=== PATIENT | female | born 1955 | race Caucasian/White ===

== ENCOUNTER 2018-10-13 07:08 | Day surgery (SDC) | payer OTHER ==
[2018-10-12 11:23] VITALS: BMI 43.6
[2018-10-13] MEDS ORDERED: LIDOCAINE HCL 1%, 10 MG/ML (20ML VIAL) ONE ×2 (08:11→10:10)
[2018-10-13] MEDS ORDERED: PROPOFOL 20 ML ONE (08:56)
[2018-10-13] MEDS ORDERED: MIDAZOLAM HCL 2 MG/2 ML SINGLE DOSE VIAL ONE ×2 (08:56)
[2018-10-13] MEDS ORDERED: SUCCINYLCHOLINE CHLORIDE 200 MG/10 ML VIAL ONE (08:56)
[2018-10-13] MEDS ORDERED: DEXAMETHASONE SOD PHOSPHATE 4 MG/1 ML VIAL ONE (09:33)
[2018-10-13] MEDS ORDERED: ONDANSETRON 4 MG/2 ML VIAL ONE (09:33)
[2018-10-13] MEDS ORDERED: ceFAZolin SODIUM 1 GM VIAL IVPB ONE (09:33)
[2018-10-13] MEDS ORDERED: ceFAZolin SODIUM 1 GM VIAL ONE (09:42)
--- NOTE | 2018-10-13 10:06 | CONS ---
DATE OF CONSULTATION: 10/13/2018 HISTORY OF PRESENT ILLNESS: Patient is a 62-year-old female with history of overactive bladder and urge incontinence. Patient has failed multiple medical treatments as well as Kegel exercises. She is scheduled to undergo a bladder neurostimulation battery insertion. She does have history of diabetes as well as thyroid disease and dyslipidemia. She has undergone a hysterectomy. She denies any allergies, ethanol, or tobacco. She is nulligravida. MEDICATIONS: She is on Januvia, Lipitor, thyroxin, and a PPI. PHYSICAL EXAMINATION: Vital signs: Were stable. Lungs: Clear. Abdomen: Soft. Pelvic: Revealed atrophic vaginal mucosa. Teodoro test is negative. She underwent a PTNS on August 02, which revealed good response to neurostimulation. PLAN: She will undergo permanent implantation this morning. Procedure has been explained fully to patient, and she agrees. MEMO TURNER M.D. [id number]
--- NOTE | 2018-10-13 10:33 | OP ---
Operative Note - Note: Operative Date: 10/13/18 Pre-Operative Diagnosis: overactive bladder and voiding dysfunction. failed medical therapy. Operation: neurointerstim implantation of lead and battery. Implants: interstim battery and lead Post-Operative Diagnosis: Same as Pre-op Surgeon: Patricia Calle Anesthesia: Local Specimens Removed: none Estimated Blood Loss (mls): 0 Drains & Tubes with Location: 0 Drains, Volume Out (mls): 0 Blood Volume Replaced (mls): 0 Fluid Volume Replaced (mls): 0 Operative Report Dictated: Yes
[2018-10-13] MEDS ORDERED: ACETAMINOPHEN 325 MG TABLET (FP) PO PRN (10:35)
[2018-10-13] MEDS ORDERED: LIDOCAINE 1% P/F 10 MG/ML VIAL INF ONE (10:37)
[2018-10-13] MEDS ORDERED: oxyCODONE HCL 5 MG TABLET PO PRN (10:41)
[2018-10-13] MEDS ORDERED: ONDANSETRON 4 MG/2 ML VIAL IVPUSH PRN (10:41)
[2018-10-13] MEDS ORDERED: ACETAMINOPHEN 325 MG TABLET (FP) ONE (10:42)
[2018-10-13] MEDS ORDERED: LACTATED RINGERS SOLUTION 1,000 ML IV SCH (10:45)
--- NOTE | 2018-10-13 11:50 | OP ---
DATE OF OPERATION: DATE OF DICTATION: 10/13/2018 PREOPERATIVE DIAGNOSES: Overactive bladder, voiding dysfunction. POSTOPERATIVE DIAGNOSES: Overactive bladder, voiding dysfunction. OPERATIVE PROCEDURE: Placement of a bladder neurostimulator. ANESTHESIA: Neuroelectric and local. Patient was placed in the prone position. After proper measurements sacral route 2 on the right side was cannulated. There appeared to be good stimulation with flickering of the toe and a perianal [place] maneuver. The lead was placed inside the sacral nerve route 3 and tunneled to the right supra jessica region overlying the lower back. An incision approximately 4 cm in length was made above the gluteal crease on the right side. This was carried down through skin and subcutaneous tissue. The InterStim battery was then connected to the lead which was tunneled from the midline to the area of the pocket. The lead was then connected to the battery. The battery was placed into the pocket over the jessica gluteus. The wound was irrigated with antibiotic solution and closed in 2 layers, the 1st layer with 3-0 Vicryl suture ligature. The skin was closed with micah. The patient tolerated the procedure well. Tushar [id number]
[2018-10-13] MEDS ORDERED: oxyCODONE HCL 5 MG TABLET ONE (12:09)
[2018-10-13 12:55] VITALS: TEMP 97.8
[2018-10-13 14:38] VITALS: BP 140/70; PULSE 70
== END 2018-10-13 14:52 | disposition home or self-care (01) ==
LOC: JASU-SURG 07:08
PROVIDERS: ATTEND Urology
PROC: 01HY0MZ Insertion of Neurostimulator Lead into Peripheral Nerve, Open Approach (ICD-10-PCS; 2018-10-13)
PROC: 4B01XVZ Measurement of Peripheral Nervous Stimulator, External Approach (ICD-10-PCS; 2018-10-13)
PROC: 0JH70BZ Insertion of Single Array Stimulator Generator into Back Subcutaneous Tissue and Fascia, Open Approach (ICD-10-PCS; principal; 2018-10-13 09:00)
DX: N32.81 Overactive bladder (principal); N31.8 Other neuromuscular dysfunction of bladder; N39.3 Stress incontinence (female) (male)
CPT/HCPCS: 64581; 64590; 95972; C1778; L8679; 76000-TC-FY; 82962; 94760

== ENCOUNTER 2019-10-23 06:02 | Day surgery (SDC) | payer OTHER ==
[2019-10-22 09:55] VITALS: BMI 40.4
[2019-10-23 06:23] VITALS: TEMP 97.5
[2019-10-23] MEDS ORDERED: LIDOCAINE HCL 1%, 10 MG/ML (20ML VIAL) ONE (07:09)
[2019-10-23] MEDS ORDERED: SUCCINYLCHOLINE CHLORIDE 200 MG/10 ML SYRINGE ONE (07:23)
[2019-10-23] MEDS ORDERED: MIDAZOLAM HCL 2 MG/2 ML SINGLE DOSE VIAL ONE (07:23)
[2019-10-23] MEDS ORDERED: PROPOFOL 20 ML ONE (07:23)
[2019-10-23] MEDS ORDERED: LIDOCAINE HCL/PF 2% SDV 5ML VIAL ONE (07:25)
[2019-10-23] MEDS ORDERED: DESFLURANE GAS 240 ML BOTTLE IH ONE (07:50)
[2019-10-23] MEDS ORDERED: ceFAZolin SODIUM 1 GM VIAL IVPB ONE (08:21)
[2019-10-23] MEDS ORDERED: ceFAZolin SODIUM 1 GM VIAL ONE ×2 (08:31→11:37)
[2019-10-23] MEDS ORDERED: BACITRACIN 50,000 UNITS VIAL NR ONE (08:36)
[2019-10-23] MEDS ORDERED: LIDOCAINE HCL 1%, 10 MG/ML (20ML VIAL) NR ONE ×2 (08:44)
[2019-10-23] MEDS ORDERED: oxyCODONE HCL 5 MG TABLET PO PRN (09:04)
[2019-10-23] MEDS ORDERED: ONDANSETRON 4 MG/2 ML VIAL IVPUSH PRN (09:04)
[2019-10-23] MEDS ORDERED: LACTATED RINGERS SOLUTION 1,000 ML IV SCH (09:15)
--- NOTE | 2019-10-23 09:30 | OP ---
Operative Note - Note: Operative Date: 10/23/19 Pre-Operative Diagnosis: over-active bladder Operation: interstim implantation with lead Post-Operative Diagnosis: Same as Pre-op Surgeon: Patricia Calle Anesthesia: Local, Fractional Estimated Blood Loss (mls): 20 Drains, Volume Out (mls): 0 Blood Volume Replaced (mls): 0 Fluid Volume Replaced (mls): 0 Operative Report Dictated: Yes
[2019-10-23] MEDS ORDERED: ACETAMINOPHEN 325 MG TABLET (FP) ONE (11:06)
[2019-10-23] MEDS ORDERED: ACETAMINOPHEN 325 MG TABLET (FP) PO ONE (11:20)
[2019-10-23 12:29] VITALS: BP 103/50; PULSE 75
--- NOTE | 2019-10-24 09:25 | HP ---
DATE OF ADMISSION: 10/23/2019 HISTORY OF PRESENT ILLNESS: Patient is a 63-year-old female with history of overactive bladder, which was refractory to exercise and anticholinergics. She is diabetic, dyslipidemic, has hypothyroidism, osteoarthritis, history of gastritis and diverticulosis. She also has lumbar disk disease. She is nulligravida, denies any allergies. Urodynamic evaluation revealed an overactive bladder with urgency incontinence. MEDICATIONS: She is on multiple medications including Janumet, nateglinide, Synthroid, statin, aspirin, a PPI, Naprosyn, gabapentin, fenofibrate, Benicar, and metoprolol. SOCIAL HISTORY: She denies ethanolism or tobacco. PHYSICAL EXAMINATION: General: Presently, she appears to be normal. Abdomen: Her abdomen is soft. There is no CVA tenderness. Pelvic: Examination revealed an atrophic vaginitis with a grade 1 cystorectocele. Teodoro test is negative. Extremities: Reveal full range of motion with no cyanosis, clubbing, or edema. PLAN: Patient will undergo implantation of a neurostimulator. She had the external device for the past 2 weeks and has had major improvement. Therefore, she will have the permanent battery and lead implanted today. The procedure was explained to the patient fully and in detail. She agrees. Tushar [id number]
--- NOTE | 2019-10-24 11:22 | OP ---
DATE OF OPERATION: 10/23/2019 PREOPERATIVE DIAGNOSIS: Refractory overactive bladder. OPERATIVE PROCEDURE: InterStim implantation as well as lead implantation. ANESTHESIA: Neuroleptic and local. DESCRIPTION OF PROCEDURE: Under above-stated anesthesia, patient was placed in the prone position. A left sacral approach was performed because the patient is status post a right neurostimulator. After proper measurements, the sacral nerve 2 was isolated, and the lead was placed. After proper placement of the lead, this was then tunneled to the left supragluteal area where a 6-cm vertical incision was made. This was carried down through skin and subcutaneous tissue. Using both blunt and sharp dissection, a pocket for the battery was made. The lead was then connected to the battery. After proper manipulation and adequate responses and a positive sign, the lead was inserted with the battery in the left supragluteal pocket. The wound was irrigated. The wound was closed with 3-0 Vicryl suture ligatures and micah. Pressure dressing was applied. Patient tolerated the procedure well. She returned to the recovery room in good condition. Tushar [id number]
== END 2019-10-23 11:30 | disposition home or self-care (01) ==
LOC: JASU-SURG 06:02
PROVIDERS: ATTEND Urology
PROC: 01HY0MZ Insertion of Neurostimulator Lead into Peripheral Nerve, Open Approach (ICD-10-PCS; 2019-10-23)
PROC: 0JH70BZ Insertion of Single Array Stimulator Generator into Back Subcutaneous Tissue and Fascia, Open Approach (ICD-10-PCS; principal; 2019-10-23 08:00)
DX: N32.81 Overactive bladder (principal); E11.9 Type 2 diabetes mellitus without complications; E78.5 Hyperlipidemia, unspecified; E03.9 Hypothyroidism, unspecified; M19.90 Unspecified osteoarthritis, unspecified site
CPT/HCPCS: 64581; 64590; 95972; C1778; L8679; 76000-TC-FY; 82962

== ENCOUNTER 2020-02-20 07:37 | Day surgery (SDC) | payer OTHER ==
[2020-02-19 11:24] VITALS: BMI 40.4
[2020-02-20] MEDS ORDERED: LIDOCAINE HCL 1%, 10 MG/ML (20ML VIAL) ONE ×2 (07:49→10:13)
[2020-02-20] MEDS ORDERED: MIDAZOLAM HCL 2 MG/2 ML SINGLE DOSE VIAL ONE ×2 (09:37→10:31)
[2020-02-20] MEDS ORDERED: WATER FOR INJ,STERILE 10 ML ONE (09:55)
[2020-02-20] MEDS ORDERED: ceFAZolin SODIUM 1 GM VIAL IVPB ONE (10:00)
[2020-02-20] MEDS ORDERED: LIDOCAINE HCL 1%, 10 MG/ML (20ML VIAL) ID ONE (10:11)
[2020-02-20] MEDS ORDERED: BACITRACIN 50,000 UNITS VIAL IM ONE (10:28)
[2020-02-20] MEDS ORDERED: BACITRACIN 15 GM TUBE TOPICAL OINTMENT ONE (10:43)
[2020-02-20] MEDS ORDERED: BACITRACIN 15 GM TUBE TOPICAL OINTMENT TP ONE (10:44)
[2020-02-20 12:39] VITALS: TEMP 97.1
--- NOTE | 2020-02-20 13:33 | OP ---
Operative Note - Note: Operative Date: 02/20/20 Pre-Operative Diagnosis: OAB REFRACTORY Operation: D/C OF SNS ON RT. AND LT. SIDE Post-Operative Diagnosis: Same as Pre-op Surgeon: Patricia Calle Anesthesia: Fractional Specimens Removed: SNS BATTERY AND LEADS FROM RT. AND LT. SIDE Estimated Blood Loss (mls): 50 Drains & Tubes with Location: NONE Drains, Volume Out (mls): 0 Blood Volume Replaced (mls): 0 Fluid Volume Replaced (mls): 0 Operative Report Dictated: Yes
[2020-02-20 14:16] VITALS: BP 105/54; PULSE 70
--- NOTE | 2020-02-21 09:44 | HP ---
DATE OF ADMISSION: 02/20/2020 HISTORY OF PRESENT ILLNESS: Patient is a 64-year-old female admitted for removal of sacral nerve stimulators which were implanted 2 years earlier and the 2nd one implanted in early October 2019. Patient does have a history of refractory overactive bladder including frequency, nocturia, urgency, terminal dribbling and chronic pelvic pain. She has failed anticholinergics as well as Myrbetriq. She does complain of point pain at the site of the batteries over the right and left gluteus jessica areas. PAST MEDICAL HISTORY: She does have history of diabetes and hyperlipidemia. She is nulligravida. PAST SURGICAL HISTORY: She has undergone a hysterectomy. MEDICATIONS: Presently she is on Januvia, Lipitor and . ALLERGIES: Denies allergies. SOCIAL HISTORY: Denies ethanolism or tobacco. PHYSICAL EXAMINATION:General: Revealed a well-developed adult female. Chest: Clear. Heart: Regular. Abdomen: Soft. No CVA tenderness. Back: Revealed 2 vertical incisions on the right and left sides over the gluteus jessica. The batteries were palpated and were tender to palpation. There was no skin discoloration or change in temperature. Extremities: Revealed full range of motion. There was no cyanosis, clubbing or edema. Pelvic: Revealed atrophic vaginitis. No cystocele was seen. IMPRESSION: At present is voiding dysfunction, pain at site of sacral nerve stimulation batteries. PLAN: To remove both batteries and leads. Patient will undergo Botox bladder injection in the near future. Tushar [id number]
--- NOTE | 2020-02-21 10:09 | OP ---
DATE OF OPERATION: 02/20/2020 PREOPERATIVE DIAGNOSIS: Refractory overactive bladder status post insertion of neurostimulators on the right side and the left side, tenderness and poor result. POSTOPERATIVE DIAGNOSIS: Refractory overactive bladder status post insertion of neurostimulators on the right side and the left side, tenderness and poor result. OPERATIVE PROCEDURE: Removal of right and left neuromodulator batteries and leads. ANESTHESIA: Neuroleptic and local. DESCRIPTION OF PROCEDURE: Patient was prepped and draped in the usual sterile fashion. She was placed in the prone position. Palpation of the right supragluteal area revealed the neuromodulator battery below the skin. A 6-cm vertical incision was made. This was carried down through skin and subcutaneous tissue. A pseudocapsule had been formed around the neuromodulator battery. The capsule was opened with cautery. The battery and the proximal leads were brought out into the wound. Palpation of the spine revealed a kink in the skin, confirming the exit of the leads from sacral nerve root 3. An incision was made over the sacroiliac spine approximately 2 cm in transverse length. Using palpation with digital finger and the right angle clamp, the end of the lead was grabbed and pulled out of the sacral roots atraumatically. The entire battery and lead were then sent to pathology. Same thing was done on the contralateral side, but the lead which was deeply implanted into the sacral roots was unable to be removed. It was transected at the base, and since there was no motor or sensory stimulation to the end of the lead, it was considered to be a nonessential matter. Therefore, both wounds were irrigated. Suture ligatures of 3-0 Vicryl were used to close the subcutaneous tissue. Skin micah were used to close the skin over the right, the left, and the iliosacral spine incisions. The patient tolerated the procedure well. She returned to recovery room in good condition. Tushar [id number]
--- NOTE | 2020-02-25 17:53 | PATH ---
Surgical Pathology Report Patient Name: MELISSA GARCIA Med. Rec. #: [id number] /Age/Gender: 1955 (Age: 64) / F Account: [id number] Location: [facility] SURGICAL Taken: 02/20/2020 Received: 02/21/2020 Reported: 02/25/2020 Physicians: Patricia Calle M.D. Specimen(s) Received A: RIGHT SIDE LEAD AND BATTERY B: LEFT SIDE LEAD AND BATTERY Clinical History Interstim stimulator for urinary incontinence Final Diagnosis A. RIGHT SIDE LEAD AND BATTERY, REMOVAL: CONSISTENT WITH INTERSTIM STIMULATOR. GROSS EXAMINATION ONLY. B. LEFT SIDE LEAD AND BATTERY, REMOVAL: CONSISTENT WITH INTERSTIM STIMULATOR. GROSS EXAMINATION ONLY. Electronically Signed Aime Alejandro M.D. Gross Description A. Received fresh labeled "right side lead and battery," is a 5.0 x 4.3 x 0.8 cm najera metallic device, consistent with a battery. The specimen has the following inscription: "Med[employer]onic InterStim II SN: [id number]." Tthere is a 21 cm in length najera metallic wire attached to the battery. There is an additional 11.5 cm in length portion of najera metallic wire separately received within the same container. The soft tissue is present. No sections are submitted, gross only. B. Received fresh labeled "left lead and battery," is a 5.0 x 4.3 x 0.8 cm najera metallic device, consistent with a battery. The specimen has the following inscription: "[employer]onic InterStim II SN: [id number]." Separately received within the same container is a 25 cm in length najera metallic portion of wire. No soft tissue is present. No sections are submitted, gross only. DL/02/21/2020 saudi/02/21/2020
== END 2020-02-20 13:40 | disposition home or self-care (01) ==
LOC: JASU-SURG 07:37
PROVIDERS: ATTEND Urology
PROC: 0JPT0MZ Removal of Stimulator Generator from Trunk Subcutaneous Tissue and Fascia, Open Approach (ICD-10-PCS; 2020-02-20)
PROC: 01PY0MZ Removal of Neurostimulator Lead from Peripheral Nerve, Open Approach (ICD-10-PCS; principal; 2020-02-20 10:00)
DX: N32.81 Overactive bladder (principal); Z96.82 Presence of neurostimulator; E11.9 Type 2 diabetes mellitus without complications; E78.5 Hyperlipidemia, unspecified
CPT/HCPCS: 82962; 88300-TC; 94760

== ENCOUNTER 2020-09-05 04:21 | Day surgery (SDC) | payer OTHER ==
[2020-09-04 10:22] VITALS: BMI 44.4
[~2020-09-05 04:21] MED LIST: BUPIVACAINE HCL/PF 0.5% (5 MG/ML) 30 ML VIAL IJ ONE; DEXAMETHASONE SOD PHOSPHATE 10 MG/1 ML VIAL IM ONE; IOHEXOL 180 MG/1 ML ML IJ ONE; LIDOCAINE HCL 1% PRESERVATIVE FREE - 30ML VIAL IJ ONE
[2020-09-05] MEDS ORDERED: TRIAMCINOLONE ACET 40MG/1ML VIAL ONE (07:22)
[2020-09-05] MEDS ORDERED: DEXAMETHASONE SOD PHOSPHATE/PF 10 MG/ML SDV ONE ×2 (07:22→12:57)
[2020-09-05] MEDS ORDERED: BUPIVACAINE HCL/PF 0.75% 10 ML VIAL ONE (07:22)
[2020-09-05] MEDS ORDERED: LIDOCAINE HCL/PF 1% SDV 5ML VIAL ONE (07:22)
[2020-09-05] MEDS ORDERED: SODIUM CHLORIDE 0.9% P/F 10 ML VIAL IJ ONE (09:30)
[2020-09-05] MEDS ORDERED: LIDOCAINE HCL 1% PRESERVATIVE FREE - 30ML VIAL IJ ONE (09:33)
[2020-09-05] MEDS ORDERED: IOHEXOL 180 MG/1 ML ML IJ ONE (09:34)
[2020-09-05] MEDS ORDERED: DEXAMETHASONE SOD PHOSPHATE 10 MG/1 ML VIAL IM ONE (09:38)
[2020-09-05 12:26] VITALS: BP 118/60; PULSE 58; TEMP 98
[2020-09-05] MEDS ORDERED: LIDOCAINE HCL/PF 2% SDV 5ML VIAL ONE (13:10)
== END 2020-09-05 11:30 | disposition home or self-care (01) ==
LOC: JASU-SURG 04:21
PROVIDERS: ATTEND Pain Medicine Pain Medicine
PROC: 3E0R33Z Introduction of Anti-inflammatory into Spinal Canal, Percutaneous Approach (ICD-10-PCS; 2020-09-05)
PROC: 3E0R3BZ Introduction of Anesthetic Agent into Spinal Canal, Percutaneous Approach (ICD-10-PCS; principal; 2020-09-05 10:00)
DX: M48.061 Spinal stenosis, lumbar region without neurogenic claudication (principal); M54.16 Radiculopathy, lumbar region
CPT/HCPCS: 76000-TC-FY; J1100

== ENCOUNTER 2020-10-03 04:21 | Day surgery (SDC) | payer OTHER ==
[2020-10-01 13:27] VITALS: BMI 42.4
[2020-10-03] MEDS ORDERED: LIDOCAINE HCL/PF 1% SDV 5ML VIAL ONE (07:28)
[2020-10-03] MEDS ORDERED: BUPIVACAINE HCL/PF 0.75% 10 ML VIAL ONE ×2 (07:28→10:11)
[2020-10-03] MEDS ORDERED: BUPIVACAINE HCL/PF 0.25% (2.5MG/ML) 10 ML VIAL ONE (07:28)
[2020-10-03] MEDS ORDERED: DEXAMETHASONE SOD PHOSPHATE/PF 10 MG/ML SDV ONE (07:28)
[2020-10-03] MEDS ORDERED: LIDOCAINE HCL 1% PRESERVATIVE FREE - 30ML VIAL IJ ONE ×2 (09:44)
[2020-10-03] MEDS ORDERED: IOHEXOL 180 MG/1 ML ML IJ ONE (09:44)
[2020-10-03] MEDS ORDERED: BUPIVACAINE HCL/PF 0.75% 10 ML VIAL NR ONE (09:54)
[2020-10-03 10:48] VITALS: BP 143/64; PULSE 62; TEMP 97.3
== END 2020-10-03 11:15 | disposition home or self-care (01) ==
LOC: JASU-SURG 04:21
PROVIDERS: ATTEND Pain Medicine Pain Medicine
PROC: 3E0T3BZ Introduction of Anesthetic Agent into Peripheral Nerves and Plexi, Percutaneous Approach (ICD-10-PCS; principal; 2020-10-03 09:30)
DX: M47.816 Spondylosis without myelopathy or radiculopathy, lumbar region (principal)
CPT/HCPCS: 76000-TC-FY

== ENCOUNTER 2020-10-18 15:36 | Inpatient (IN) | payer OTHER ==
[2020-10-18] MEDS ORDERED: DEXAMETHASONE SOD PHOSPHATE 10 MG/1 ML VIAL IVPUSH ONE (15:56)
[2020-10-18] MEDS ORDERED: SODIUM CHLORIDE 0.9% 500 ML INFUS.BAG IV ONE (16:16)
[2020-10-18 16:40] LABS: BASO % 0.4 % (0-2.0); EOS % 0.4 % (0-4.5); HEMATOCRIT 36.2 % (32.4-45.2); HEMOGLOBIN 12.1 GM/dL (10.7-15.3); LYMPH % 15.4 % (8-40); MCH 30.3 pg (25.7-33.7); MCHC 33.4 g/dl (32.0-36.0); MEAN CELL VOLUME 90.8 fl (80-96); MEAN PLT VOLUME 9.1 fl (7.5-11.1); MONO % 8.2 % (3.8-10.2); NEUT % 75.6 % (42.8-82.8); PLATELET COUNT 161 K/MM3 (134-434); RBC 3.99 M/mm3 (3.60-5.2); RDW 13.2 % (11.6-15.6); WHITE BLOOD COUNT 4.5 K/mm3 (4.0-10.0)
[2020-10-18] MEDS ORDERED: DEXAMETHASONE SOD PHOSPHATE 4 MG/1 ML VIAL ONE (16:51)
[2020-10-18 16:57] LABS: POTASSIUM 3.9 mmol/L (3.5-5.1)
[2020-10-18 17:00] LABS: ALBUMIN 3.6 g/dl (3.4-5.0); BLOOD UREA NITROGEN 26.2 mg/dL (7-18); CALCIUM 9.5 mg/dL (8.5-10.1)
[2020-10-18 17:03] LABS: CREATININE 0.9 mg/dL (0.55-1.3)
[2020-10-18 17:05] LABS: BILIRUBIN,TOTAL 0.2 mg/dL (0.2-1); TOT PROT 6.7 g/dl (6.4-8.2)
[2020-10-19] MEDS ORDERED: AZITHROMYCIN IVPB 500 MG/250 ML BAG IVPB ONE (00:41)
[2020-10-19 01:01] VITALS: BMI 40.5
[2020-10-19] MEDS: GABAPENTIN 300 MG CAPSULE PO SCH ×3 (01:20→21:46)
[2020-10-19] MEDS: LEVOTHYROXINE NA 75 MCG TABLET (FP) PO SCH (06:57)
[2020-10-19] MEDS: metFORMIN HCL 500 MG TABLET (FP) PO SCH ×2 (06:57→17:07)
[2020-10-19] MEDS: INSULIN SLIDING SCALE (NOVOLOG) 1 VIAL SQ SCH ×4 (06:57→21:48)
[2020-10-19] MEDS ORDERED: ACETAMINOPHEN 325 MG TABLET (FP) PO PRN (08:01)
[2020-10-19] MEDS ORDERED: ENOXAPARIN NA (PORCINE) 100 MG/1 ML DISP.SYRIN SQ SCH ×2 (08:15→13:00)
[2020-10-19 09:10] LABS: BASO % 0.2 % (0-2.0); HEMATOCRIT 33.7 % (32.4-45.2); HEMOGLOBIN 11.6 GM/dL (10.7-15.3); LYMPH % 20.9 % (8-40); MCH 30.8 pg (25.7-33.7); MCHC 34.5 g/dl (32.0-36.0); MEAN CELL VOLUME 89.4 fl (80-96); MEAN PLT VOLUME 9.4 fl (7.5-11.1); MONO % 7.9 % (3.8-10.2); PLATELET COUNT 147 K/MM3 (134-434); RBC 3.77 M/mm3 (3.60-5.2); RDW 13.1 % (11.6-15.6); WHITE BLOOD COUNT 4.5 K/mm3 (4.0-10.0)
[2020-10-19 09:22] LABS: POTASSIUM 3.8 mmol/L (3.5-5.1)
[2020-10-19] MEDS: ASPIRIN COATED 81 MG TABLET.EC PO SCH (09:25)
[2020-10-19] MEDS: DEXAMETHASONE SOD PHOSPHATE 4 MG/1 ML VIAL IVPUSH SCH (09:25)
[2020-10-19] MEDS: METOPROLOL TARTRATE 25 MG TABLET (FP) PO SCH (09:25)
[2020-10-19] MEDS: ASCORBIC ACID 500 MG TABLET (FP) PO SCH ×2 (09:25→21:46)
[2020-10-19] MEDS: ZINC SULFATE 220 MG CAPSULE (FP) PO SCH ×2 (09:25→21:46)
[2020-10-19] MEDS: LOSARTAN POTASSIUM 25 MG TABLET PO SCH (09:26)
[2020-10-19 09:28] LABS: ALBUMIN 3.3 g/dl (3.4-5.0); BLOOD UREA NITROGEN 19.2 mg/dL (7-18)
[2020-10-19 09:29] LABS: CALCIUM 9.2 mg/dL (8.5-10.1)
[2020-10-19] MEDS: CHOLECALCIFEROL (VIT D3) 1,000 UNIT (25 MCG) TABLET PO SCH (09:30)
[2020-10-19 09:31] LABS: CREATININE 0.8 mg/dL (0.55-1.3)
[2020-10-19 09:33] LABS: BILIRUBIN,TOTAL 0.3 mg/dL (0.2-1); TOT PROT 6.6 g/dl (6.4-8.2)
[2020-10-19] MEDS: BRIMONIDINE TARTRATE 0.1% OPHTHALMIC 5 ML BOTTLE OU SCH ×2 (10:20→23:00)
[2020-10-19] MEDS ORDERED: REMDESIVIR 200 MG in SODIUM CHLORIDE 210 ML IVPB ONE (14:00)
[2020-10-19] MEDS ORDERED: INSULIN (NOVOLOG) ASPART 100 UNITS/ML 10ML VIAL ONE (17:05)
[2020-10-19] MEDS ORDERED: PT OWN MED DRAWER 7, Y5N ONE (21:30)
[2020-10-19] MEDS: FENOFIBRIC ACID 45 MG CAP PO SCH (21:46)
[2020-10-19] MEDS: ENOXAPARIN NA (PORCINE) 40 MG/0.4 ML DISP.SYRIN SQ SCH (21:46)
[2020-10-19] MEDS: ATORVASTATIN CA 20 MG TABLET (FP) PO SCH (21:46)
[2020-10-19] MEDS ORDERED: BIMATOPROST OU SCH (22:00)
[2020-10-19] MEDS: LATANOPROST 0.005% OPHTH SOLN 2.5ML BOTTLE OU SCH (23:00)
[2020-10-20] MEDS: INSULIN SLIDING SCALE (NOVOLOG) 1 VIAL SQ SCH ×4 (06:26→21:50)
[2020-10-20] MEDS: metFORMIN HCL 500 MG TABLET (FP) PO SCH ×2 (06:30→16:55)
[2020-10-20] MEDS: LEVOTHYROXINE NA 75 MCG TABLET (FP) PO SCH (06:31)
[2020-10-20] MEDS ORDERED: INSULIN (NOVOLOG) ASPART 100 UNITS/ML 10ML VIAL ONE (06:58)
[2020-10-20 09:01] LABS: BASO % 0.3 % (0-2.0); HEMATOCRIT 33.9 % (32.4-45.2); HEMOGLOBIN 11.7 GM/dL (10.7-15.3); LYMPH % 24.5 % (8-40); MCH 30.7 pg (25.7-33.7); MCHC 34.4 g/dl (32.0-36.0); MEAN CELL VOLUME 89.2 fl (80-96); MEAN PLT VOLUME 9.7 fl (7.5-11.1); MONO % 10.5 % (3.8-10.2); NEUT % 64.7 % (42.8-82.8); PLATELET COUNT 137 K/MM3 (134-434); RDW 12.9 % (11.6-15.6); WHITE BLOOD COUNT 4.8 K/mm3 (4.0-10.0)
[2020-10-20 09:28] LABS: POTASSIUM 3.9 mmol/L (3.5-5.1)
[2020-10-20 09:36] LABS: BLOOD UREA NITROGEN 22.5 mg/dL (7-18)
[2020-10-20] MEDS ORDERED: PT OWN MED DRAWER 7, Y5N ONE ×2 (09:36→21:19)
[2020-10-20 09:37] LABS: CALCIUM 8.9 mg/dL (8.5-10.1)
[2020-10-20 09:39] LABS: BILIRUBIN,TOTAL 0.3 mg/dL (0.2-1); TOT PROT 6.2 g/dl (6.4-8.2)
[2020-10-20 09:40] LABS: CREATININE 0.8 mg/dL (0.55-1.3)
[2020-10-20] MEDS: ASCORBIC ACID 500 MG TABLET (FP) PO SCH ×2 (09:42→21:36)
[2020-10-20] MEDS: ZINC SULFATE 220 MG CAPSULE (FP) PO SCH ×2 (09:42→21:36)
[2020-10-20] MEDS: GABAPENTIN 300 MG CAPSULE PO SCH ×2 (09:43→21:36)
[2020-10-20] MEDS: METOPROLOL TARTRATE 25 MG TABLET (FP) PO SCH (09:43)
[2020-10-20] MEDS: ENOXAPARIN NA (PORCINE) 40 MG/0.4 ML DISP.SYRIN SQ SCH ×2 (09:43→21:58)
[2020-10-20] MEDS: DEXAMETHASONE SOD PHOSPHATE 4 MG/1 ML VIAL IVPUSH SCH (09:43)
[2020-10-20] MEDS: LOSARTAN POTASSIUM 25 MG TABLET PO SCH (09:43)
[2020-10-20] MEDS: BRIMONIDINE TARTRATE 0.1% OPHTHALMIC 5 ML BOTTLE OU SCH ×2 (09:43→21:58)
[2020-10-20] MEDS: CHOLECALCIFEROL (VIT D3) 1,000 UNIT (25 MCG) TABLET PO SCH (09:43)
[2020-10-20] MEDS: ASPIRIN COATED 81 MG TABLET.EC PO SCH (09:43)
[2020-10-20] MEDS: REMDESIVIR 100 MG in SODIUM CHLORIDE 230 ML IVPB SCH (15:52)
[2020-10-20] MEDS: ATORVASTATIN CA 20 MG TABLET (FP) PO SCH (21:36)
[2020-10-20] MEDS: FENOFIBRIC ACID 45 MG CAP PO SCH (21:58)
[2020-10-20] MEDS ORDERED: guaiFENesin/CODEINE 10 ML UNIT-DOSE CUPS PO SCH (22:00)
[2020-10-20] MEDS: LATANOPROST 0.005% OPHTH SOLN 2.5ML BOTTLE OU SCH (23:15)
[2020-10-21] MEDS: LEVOTHYROXINE NA 75 MCG TABLET (FP) PO SCH (06:46)
[2020-10-21] MEDS: metFORMIN HCL 500 MG TABLET (FP) PO SCH ×3 (06:46→15:40)
[2020-10-21] MEDS: INSULIN SLIDING SCALE (NOVOLOG) 1 VIAL SQ SCH ×4 (06:46→21:49)
[2020-10-21 08:43] LABS: BASO % 0.3 % (0-2.0); HEMATOCRIT 35.7 % (32.4-45.2); HEMOGLOBIN 12.3 GM/dL (10.7-15.3); LYMPH % 26.8 % (8-40); MCH 30.5 pg (25.7-33.7); MCHC 34.4 g/dl (32.0-36.0); MEAN CELL VOLUME 88.9 fl (80-96); MONO % 11.1 % (3.8-10.2); NEUT % 61.8 % (42.8-82.8); PLATELET COUNT 155 K/MM3 (134-434); RBC 4.02 M/mm3 (3.60-5.2); RDW 12.9 % (11.6-15.6); WHITE BLOOD COUNT 4.8 K/mm3 (4.0-10.0)
[2020-10-21 09:05] LABS: POTASSIUM 4.1 mmol/L (3.5-5.1)
[2020-10-21 09:09] LABS: CALCIUM 9.5 mg/dL (8.5-10.1)
[2020-10-21 09:10] LABS: ALBUMIN 3.1 g/dl (3.4-5.0)
[2020-10-21 09:13] LABS: CREATININE 0.7 mg/dL (0.55-1.3)
[2020-10-21 09:14] LABS: BILIRUBIN,TOTAL 0.3 mg/dL (0.2-1); TOT PROT 6.5 g/dl (6.4-8.2)
[2020-10-21] MEDS: BRIMONIDINE TARTRATE 0.1% OPHTHALMIC 5 ML BOTTLE OU SCH ×2 (09:22→21:47)
[2020-10-21] MEDS: ASCORBIC ACID 500 MG TABLET (FP) PO SCH ×2 (09:23→21:47)
[2020-10-21] MEDS: METOPROLOL TARTRATE 25 MG TABLET (FP) PO SCH (09:23)
[2020-10-21] MEDS: ASPIRIN COATED 81 MG TABLET.EC PO SCH (09:23)
[2020-10-21] MEDS: GABAPENTIN 300 MG CAPSULE PO SCH ×2 (09:24→21:47)
[2020-10-21] MEDS: LOSARTAN POTASSIUM 25 MG TABLET PO SCH (09:24)
[2020-10-21] MEDS: ENOXAPARIN NA (PORCINE) 40 MG/0.4 ML DISP.SYRIN SQ SCH ×2 (09:24→21:47)
[2020-10-21] MEDS: ZINC SULFATE 220 MG CAPSULE (FP) PO SCH ×2 (09:24→21:47)
[2020-10-21] MEDS: DEXAMETHASONE SOD PHOSPHATE 4 MG/1 ML VIAL IVPUSH SCH (09:24)
[2020-10-21] MEDS: CHOLECALCIFEROL (VIT D3) 1,000 UNIT (25 MCG) TABLET PO SCH (09:25)
[2020-10-21] MEDS: REMDESIVIR 100 MG in SODIUM CHLORIDE 230 ML IVPB SCH (14:46)
[2020-10-21] MEDS: CODEINE SO4 30 MG TABLET PO PRN (15:08)
[2020-10-21] MEDS: guaiFENesin 200 MG/10 ML 10 ML UNIT-DOSE CUPS PO PRN (15:08)
[2020-10-21] MEDS ORDERED: PT OWN MED DRAWER 7, Y5N ONE (21:15)
[2020-10-21] MEDS: ATORVASTATIN CA 20 MG TABLET (FP) PO SCH (21:47)
[2020-10-21] MEDS: FENOFIBRIC ACID 45 MG CAP PO SCH (21:47)
[2020-10-21] MEDS: LATANOPROST 0.005% OPHTH SOLN 2.5ML BOTTLE OU SCH (21:47)
[2020-10-22] MEDS: metFORMIN HCL 500 MG TABLET (FP) PO SCH ×2 (06:32→15:43)
[2020-10-22] MEDS: LEVOTHYROXINE NA 75 MCG TABLET (FP) PO SCH (06:32)
[2020-10-22] MEDS: INSULIN SLIDING SCALE (NOVOLOG) 1 VIAL SQ SCH ×4 (06:32→22:12)
[2020-10-22] MEDS: ASCORBIC ACID 500 MG TABLET (FP) PO SCH ×2 (09:21→21:46)
[2020-10-22] MEDS: CHOLECALCIFEROL (VIT D3) 1,000 UNIT (25 MCG) TABLET PO SCH (09:21)
[2020-10-22] MEDS: LOSARTAN POTASSIUM 25 MG TABLET PO SCH (09:21)
[2020-10-22] MEDS: metoPROLOL SUCCINATE 25 MG TAB.SR.24H (FP) PO SCH (09:21)
[2020-10-22] MEDS: GABAPENTIN 300 MG CAPSULE PO SCH ×2 (09:21→21:46)
[2020-10-22] MEDS: DEXAMETHASONE SOD PHOSPHATE 4 MG/1 ML VIAL IVPUSH SCH (09:21)
[2020-10-22] MEDS: guaiFENesin 200 MG/10 ML 10 ML UNIT-DOSE CUPS PO PRN ×2 (09:21→22:11)
[2020-10-22] MEDS: ASPIRIN COATED 81 MG TABLET.EC PO SCH (09:21)
[2020-10-22] MEDS: ZINC SULFATE 220 MG CAPSULE (FP) PO SCH ×2 (09:21→21:46)
[2020-10-22] MEDS: BRIMONIDINE TARTRATE 0.1% OPHTHALMIC 5 ML BOTTLE OU SCH ×2 (09:22→21:46)
[2020-10-22] MEDS: ENOXAPARIN NA (PORCINE) 40 MG/0.4 ML DISP.SYRIN SQ SCH ×2 (09:22→21:46)
[2020-10-22 10:26] LABS: N-TERMINAL BNP 173.6 pg/ml (5-125)
[2020-10-22] MEDS: CODEINE SO4 30 MG TABLET PO PRN (13:25)
[2020-10-22] MEDS: REMDESIVIR 100 MG in SODIUM CHLORIDE 230 ML IVPB SCH (15:49)
[2020-10-22] MEDS: ATORVASTATIN CA 20 MG TABLET (FP) PO SCH (21:46)
[2020-10-22] MEDS: FENOFIBRIC ACID 45 MG CAP PO SCH (21:46)
[2020-10-22] MEDS: LATANOPROST 0.005% OPHTH SOLN 2.5ML BOTTLE OU SCH (21:47)
[2020-10-22] MEDS ORDERED: INSULIN (NOVOLOG) ASPART 100 UNITS/ML 10ML VIAL ONE (22:06)
[2020-10-23] MEDS: metFORMIN HCL 500 MG TABLET (FP) PO SCH ×2 (07:03→16:01)
[2020-10-23] MEDS: LEVOTHYROXINE NA 75 MCG TABLET (FP) PO SCH (07:04)
[2020-10-23] MEDS: INSULIN SLIDING SCALE (NOVOLOG) 1 VIAL SQ SCH ×4 (07:04→22:29)
[2020-10-23 09:28] LABS: BASO % 0.2 % (0-2.0); EOS % 0.2 % (0-4.5); HEMATOCRIT 36.5 % (32.4-45.2); HEMOGLOBIN 12.5 GM/dL (10.7-15.3); LYMPH % 34.1 % (8-40); MCH 30.5 pg (25.7-33.7); MCHC 34.4 g/dl (32.0-36.0); MEAN CELL VOLUME 88.7 fl (80-96); MEAN PLT VOLUME 9.1 fl (7.5-11.1); MONO % 11.6 % (3.8-10.2); NEUT % 53.9 % (42.8-82.8); PLATELET COUNT 194 K/MM3 (134-434); RBC 4.12 M/mm3 (3.60-5.2); RDW 12.8 % (11.6-15.6); WHITE BLOOD COUNT 5.3 K/mm3 (4.0-10.0)
[2020-10-23 09:46] LABS: POTASSIUM 3.8 mmol/L (3.5-5.1)
[2020-10-23 09:58] LABS: ALBUMIN 3.1 g/dl (3.4-5.0); BLOOD UREA NITROGEN 19.6 mg/dL (7-18); CALCIUM 9.4 mg/dL (8.5-10.1)
[2020-10-23 10:01] LABS: CREATININE 0.7 mg/dL (0.55-1.3)
[2020-10-23 10:02] LABS: BILIRUBIN,TOTAL 0.9 mg/dL (0.2-1)
[2020-10-23 10:03] LABS: TOT PROT 6.4 g/dl (6.4-8.2)
[2020-10-23] MEDS ORDERED: PT OWN MED DRAWER 7, Y5N ONE (10:19)
[2020-10-23] MEDS: DEXAMETHASONE SOD PHOSPHATE 4 MG/1 ML VIAL IVPUSH SCH (10:23)
[2020-10-23] MEDS: ASCORBIC ACID 500 MG TABLET (FP) PO SCH ×2 (10:25→22:19)
[2020-10-23] MEDS: GABAPENTIN 300 MG CAPSULE PO SCH ×2 (10:25→22:19)
[2020-10-23] MEDS: CHOLECALCIFEROL (VIT D3) 1,000 UNIT (25 MCG) TABLET PO SCH (10:25)
[2020-10-23] MEDS: ASPIRIN COATED 81 MG TABLET.EC PO SCH (10:25)
[2020-10-23] MEDS: ZINC SULFATE 220 MG CAPSULE (FP) PO SCH ×4 (10:25→22:25)
[2020-10-23] MEDS: LOSARTAN POTASSIUM 25 MG TABLET PO SCH (10:25)
[2020-10-23] MEDS: metoPROLOL SUCCINATE 25 MG TAB.SR.24H (FP) PO SCH (10:25)
[2020-10-23] MEDS: BRIMONIDINE TARTRATE 0.1% OPHTHALMIC 5 ML BOTTLE OU SCH ×2 (10:26→22:29)
[2020-10-23] MEDS: ENOXAPARIN NA (PORCINE) 40 MG/0.4 ML DISP.SYRIN SQ SCH ×2 (10:26→22:30)
[2020-10-23] MEDS: guaiFENesin 200 MG/10 ML 10 ML UNIT-DOSE CUPS PO PRN ×3 (11:30→22:34)
[2020-10-23] MEDS: REMDESIVIR 100 MG in SODIUM CHLORIDE 230 ML IVPB SCH (13:27)
[2020-10-23] MEDS ORDERED: INSULIN (NOVOLOG) ASPART 100 UNITS/ML 10ML VIAL ONE (15:59)
[2020-10-23] MEDS: FENOFIBRIC ACID 45 MG CAP PO SCH (22:19)
[2020-10-23] MEDS: ATORVASTATIN CA 20 MG TABLET (FP) PO SCH (22:19)
[2020-10-23] MEDS: LATANOPROST 0.005% OPHTH SOLN 2.5ML BOTTLE OU SCH (22:29)
[2020-10-24] MEDS: INSULIN SLIDING SCALE (NOVOLOG) 1 VIAL SQ SCH ×4 (06:55→21:05)
[2020-10-24] MEDS: metFORMIN HCL 500 MG TABLET (FP) PO SCH ×2 (06:56→16:44)
[2020-10-24] MEDS: LEVOTHYROXINE NA 75 MCG TABLET (FP) PO SCH (06:56)
[2020-10-24] MEDS: DEXAMETHASONE SOD PHOSPHATE 4 MG/1 ML VIAL IVPUSH SCH (10:12)
[2020-10-24] MEDS: ENOXAPARIN NA (PORCINE) 40 MG/0.4 ML DISP.SYRIN SQ SCH ×2 (10:12→21:01)
[2020-10-24] MEDS: ZINC SULFATE 220 MG CAPSULE (FP) PO SCH ×2 (10:14→21:00)
[2020-10-24] MEDS: ASCORBIC ACID 500 MG TABLET (FP) PO SCH ×2 (10:14→21:00)
[2020-10-24] MEDS: ASPIRIN COATED 81 MG TABLET.EC PO SCH (10:14)
[2020-10-24] MEDS: guaiFENesin 200 MG/10 ML 10 ML UNIT-DOSE CUPS PO PRN ×2 (10:14→21:01)
[2020-10-24] MEDS: CHOLECALCIFEROL (VIT D3) 1,000 UNIT (25 MCG) TABLET PO SCH (10:15)
[2020-10-24] MEDS: GABAPENTIN 300 MG CAPSULE PO SCH ×2 (10:16→21:00)
[2020-10-24] MEDS: metoPROLOL SUCCINATE 25 MG TAB.SR.24H (FP) PO SCH (10:16)
[2020-10-24] MEDS: BRIMONIDINE TARTRATE 0.1% OPHTHALMIC 5 ML BOTTLE OU SCH ×2 (10:16→21:01)
[2020-10-24] MEDS: LOSARTAN POTASSIUM 25 MG TABLET PO SCH (10:16)
[2020-10-24] MEDS ORDERED: PT OWN MED DRAWER 7, Y5N ONE (20:50)
[2020-10-24] MEDS: FENOFIBRIC ACID 45 MG CAP PO SCH (21:00)
[2020-10-24] MEDS: ATORVASTATIN CA 20 MG TABLET (FP) PO SCH (21:00)
[2020-10-24] MEDS: LATANOPROST 0.005% OPHTH SOLN 2.5ML BOTTLE OU SCH (21:01)
[2020-10-24] MEDS ORDERED: INSULIN (NOVOLOG) ASPART 100 UNITS/ML 10ML VIAL ONE (21:08)
[2020-10-25] MEDS: INSULIN SLIDING SCALE (NOVOLOG) 1 VIAL SQ SCH ×4 (06:28→23:34)
[2020-10-25] MEDS: metFORMIN HCL 500 MG TABLET (FP) PO SCH ×2 (06:28→16:54)
[2020-10-25] MEDS: LEVOTHYROXINE NA 75 MCG TABLET (FP) PO SCH (06:28)
[2020-10-25] MEDS: DEXAMETHASONE SOD PHOSPHATE 4 MG/1 ML VIAL IVPUSH SCH (09:53)
[2020-10-25] MEDS: ENOXAPARIN NA (PORCINE) 40 MG/0.4 ML DISP.SYRIN SQ SCH ×2 (09:54→23:34)
[2020-10-25] MEDS: ZINC SULFATE 220 MG CAPSULE (FP) PO SCH ×3 (09:54→23:35)
[2020-10-25] MEDS: LOSARTAN POTASSIUM 25 MG TABLET PO SCH (09:54)
[2020-10-25] MEDS: ASCORBIC ACID 500 MG TABLET (FP) PO SCH ×2 (09:54→23:31)
[2020-10-25] MEDS: metoPROLOL SUCCINATE 25 MG TAB.SR.24H (FP) PO SCH (09:54)
[2020-10-25] MEDS: GABAPENTIN 300 MG CAPSULE PO SCH ×2 (09:54→23:31)
[2020-10-25] MEDS: ASPIRIN COATED 81 MG TABLET.EC PO SCH (09:55)
[2020-10-25] MEDS: CHOLECALCIFEROL (VIT D3) 1,000 UNIT (25 MCG) TABLET PO SCH (09:55)
[2020-10-25] MEDS: BRIMONIDINE TARTRATE 0.1% OPHTHALMIC 5 ML BOTTLE OU SCH ×2 (09:55→23:38)
[2020-10-25] MEDS ORDERED: INSULIN (NOVOLOG) ASPART 100 UNITS/ML 10ML VIAL ONE (11:35)
[2020-10-25 13:17] LABS: BASO % 0.2 % (0-2.0); EOS % 0.2 % (0-4.5); HEMATOCRIT 36.7 % (32.4-45.2); HEMOGLOBIN 12.4 GM/dL (10.7-15.3); LYMPH % 11.2 % (8-40); MCH 30.4 pg (25.7-33.7); MCHC 33.8 g/dl (32.0-36.0); MEAN PLT VOLUME 9.5 fl (7.5-11.1); NEUT % 80.4 % (42.8-82.8); PLATELET COUNT 260 K/MM3 (134-434); RBC 4.08 M/mm3 (3.60-5.2); RDW 12.8 % (11.6-15.6); WHITE BLOOD COUNT 10.5 K/mm3 (4.0-10.0)
[2020-10-25 13:52] LABS: POTASSIUM 4.4 mmol/L (3.5-5.1)
[2020-10-25 13:56] LABS: ALBUMIN 3.2 g/dl (3.4-5.0); CALCIUM 10.2 mg/dL (8.5-10.1)
[2020-10-25 13:57] LABS: BLOOD UREA NITROGEN 21.6 mg/dL (7-18)
[2020-10-25 14:00] LABS: CREATININE 0.8 mg/dL (0.55-1.3)
[2020-10-25 14:01] LABS: BILIRUBIN,TOTAL 0.4 mg/dL (0.2-1); TOT PROT 6.6 g/dl (6.4-8.2)
[2020-10-25] MEDS: guaiFENesin 200 MG/10 ML 10 ML UNIT-DOSE CUPS PO PRN (19:47)
[2020-10-25] MEDS ORDERED: PT OWN MED DRAWER 7, Y5N ONE (23:28)
[2020-10-25] MEDS: ATORVASTATIN CA 20 MG TABLET (FP) PO SCH (23:31)
[2020-10-25] MEDS: FENOFIBRIC ACID 45 MG CAP PO SCH (23:31)
[2020-10-25] MEDS: LATANOPROST 0.005% OPHTH SOLN 2.5ML BOTTLE OU SCH (23:38)
[2020-10-26] MEDS: LEVOTHYROXINE NA 75 MCG TABLET (FP) PO SCH (06:55)
[2020-10-26] MEDS: metFORMIN HCL 500 MG TABLET (FP) PO SCH ×2 (06:55→16:51)
[2020-10-26] MEDS: INSULIN SLIDING SCALE (NOVOLOG) 1 VIAL SQ SCH ×4 (06:59→22:05)
[2020-10-26] MEDS: BRIMONIDINE TARTRATE 0.1% OPHTHALMIC 5 ML BOTTLE OU SCH ×2 (10:19→22:07)
[2020-10-26] MEDS: ASPIRIN COATED 81 MG TABLET.EC PO SCH (10:19)
[2020-10-26] MEDS: ENOXAPARIN NA (PORCINE) 40 MG/0.4 ML DISP.SYRIN SQ SCH (10:19)
[2020-10-26] MEDS: CHOLECALCIFEROL (VIT D3) 1,000 UNIT (25 MCG) TABLET PO SCH (10:19)
[2020-10-26] MEDS: ASCORBIC ACID 500 MG TABLET (FP) PO SCH ×2 (10:19→22:06)
[2020-10-26] MEDS: GABAPENTIN 300 MG CAPSULE PO SCH ×2 (10:19→22:06)
[2020-10-26] MEDS: LOSARTAN POTASSIUM 25 MG TABLET PO SCH (10:19)
[2020-10-26] MEDS: DEXAMETHASONE SOD PHOSPHATE 4 MG/1 ML VIAL IVPUSH SCH (10:19)
[2020-10-26] MEDS: ZINC SULFATE 220 MG CAPSULE (FP) PO SCH ×2 (10:19→22:06)
[2020-10-26] MEDS: metoPROLOL SUCCINATE 25 MG TAB.SR.24H (FP) PO SCH (10:19)
[2020-10-26] MEDS: LATANOPROST 0.005% OPHTH SOLN 2.5ML BOTTLE OU SCH (22:06)
[2020-10-26] MEDS: FENOFIBRIC ACID 45 MG CAP PO SCH (22:06)
[2020-10-26] MEDS: ATORVASTATIN CA 20 MG TABLET (FP) PO SCH (22:06)
[2020-10-26] MEDS: guaiFENesin 200 MG/10 ML 10 ML UNIT-DOSE CUPS PO PRN (22:07)
[2020-10-27 05:46] VITALS: BP 130/62; TEMP 98.1
[2020-10-27] MEDS: INSULIN SLIDING SCALE (NOVOLOG) 1 VIAL SQ SCH ×3 (06:16→16:29)
[2020-10-27] MEDS: metFORMIN HCL 500 MG TABLET (FP) PO SCH ×2 (06:17→16:29)
[2020-10-27] MEDS: LEVOTHYROXINE NA 75 MCG TABLET (FP) PO SCH (06:17)
[2020-10-27 09:58] VITALS: PULSE 94
[2020-10-27 10:15] LABS: BASO % 0.2 % (0-2.0); EOS % 0.2 % (0-4.5); HEMATOCRIT 35.6 % (32.4-45.2); HEMOGLOBIN 12.3 GM/dL (10.7-15.3); LYMPH % 23.9 % (8-40); MCH 30.4 pg (25.7-33.7); MCHC 34.5 g/dl (32.0-36.0); MEAN CELL VOLUME 88.2 fl (80-96); MEAN PLT VOLUME 9.2 fl (7.5-11.1); MONO % 8.1 % (3.8-10.2); NEUT % 67.6 % (42.8-82.8); PLATELET COUNT 354 K/MM3 (134-434); RBC 4.04 M/mm3 (3.60-5.2); RDW 12.6 % (11.6-15.6); WHITE BLOOD COUNT 9.4 K/mm3 (4.0-10.0)
[2020-10-27 10:36] LABS: POTASSIUM 4.1 mmol/L (3.5-5.1)
[2020-10-27] MEDS: metoPROLOL SUCCINATE 25 MG TAB.SR.24H (FP) PO SCH (10:44)
[2020-10-27] MEDS: GABAPENTIN 300 MG CAPSULE PO SCH (10:44)
[2020-10-27] MEDS: ASPIRIN COATED 81 MG TABLET.EC PO SCH (10:44)
[2020-10-27] MEDS: ASCORBIC ACID 500 MG TABLET (FP) PO SCH (10:44)
[2020-10-27] MEDS: CHOLECALCIFEROL (VIT D3) 1,000 UNIT (25 MCG) TABLET PO SCH (10:44)
[2020-10-27] MEDS: LOSARTAN POTASSIUM 25 MG TABLET PO SCH (10:44)
[2020-10-27] MEDS: ZINC SULFATE 220 MG CAPSULE (FP) PO SCH (10:44)
[2020-10-27] MEDS: BRIMONIDINE TARTRATE 0.1% OPHTHALMIC 5 ML BOTTLE OU SCH (10:45)
[2020-10-27] MEDS: DEXAMETHASONE SOD PHOSPHATE 4 MG/1 ML VIAL IVPUSH SCH (10:45)
[2020-10-27 10:46] LABS: ALBUMIN 3.2 g/dl (3.4-5.0); BLOOD UREA NITROGEN 20.8 mg/dL (7-18)
[2020-10-27 10:49] LABS: CREATININE 0.8 mg/dL (0.55-1.3)
[2020-10-27 10:50] LABS: BILIRUBIN,TOTAL 0.9 mg/dL (0.2-1); TOT PROT 6.8 g/dl (6.4-8.2)
[2020-10-27 10:52] LABS: CALCIUM 10.2 mg/dL (8.5-10.1)
== END 2020-10-27 17:46 | disposition home or self-care (01) | DRG 177 ==
LOC: JER 15:36 → JERBED 19:10 → J6S 22:28
PROVIDERS: ADMIT Internal Medicine; ATTEND Internal Medicine
PROC: XW033E5 Introduction of Remdesivir Anti-infective into Peripheral Vein, Percutaneous Approach, New Technology Group 5 (ICD-10-PCS; 2020-10-19)
PROC: XW13325 Transfusion of Convalescent Plasma (Nonautologous) into Peripheral Vein, Percutaneous Approach, New Technology Group 5 (ICD-10-PCS; principal; 2020-10-21)
DX: U07.1 COVID-19 (principal); J12.82 Pneumonia due to coronavirus disease 2019; J96.01 Acute respiratory failure with hypoxia; Z68.41 Body mass index [BMI] 40.0-44.9, adult; I24.8 Other forms of acute ischemic heart disease; E11.9 Type 2 diabetes mellitus without complications; I10 Essential (primary) hypertension; E78.5 Hyperlipidemia, unspecified; E03.9 Hypothyroidism, unspecified; K21.9 Gastro-esophageal reflux disease without esophagitis; E66.01 Morbid (severe) obesity due to excess calories; R77.8 Other specified abnormalities of plasma proteins; M41.9 Scoliosis, unspecified; F41.8 Other specified anxiety disorders
CPT/HCPCS: 36415; 36430; 71045-TC-FY; 71046-TC-FY; 80053; 80061; 82550; 82553; 82728; 82962; 83036; 83615; 83721; 83880; 84443; 84484; 85025; 85379; 86140; 86850; 86900; 86901; 93005; 93010; 94761; 97116-GP; 97161-GP; 99285-25; C9399; C9803; J1100; P9017; U0003

== ENCOUNTER 2021-02-20 05:05 | Day surgery (SDC) | payer OTHER ==
[2021-02-18 17:59] VITALS: BMI 40.4
[2021-02-20] MEDS ORDERED: BUPIVACAINE HCL/PF 0.75% 10 ML VIAL ONE ×2 (07:24→07:26)
[2021-02-20] MEDS ORDERED: LIDOCAINE HCL/PF 1% SDV 5ML VIAL ONE ×2 (07:26→07:30)
[2021-02-20] MEDS ORDERED: DEXAMETHASONE SOD PHOSPHATE 10 MG/1 ML VIAL ONE (09:50)
[2021-02-20] MEDS ORDERED: LIDOCAINE HCL 1% PRESERVATIVE FREE - 30ML VIAL IJ ONE (10:02)
[2021-02-20] MEDS ORDERED: IOHEXOL 180 MG/1 ML ML IJ ONE ×2 (10:03→10:05)
[2021-02-20] MEDS ORDERED: BUPIVACAINE HCL/PF 0.75% 10 ML VIAL NR ONE ×2 (10:04→10:09)
[2021-02-20 10:37] VITALS: BP 120/52; PULSE 58; TEMP 97.5
== END 2021-02-20 10:50 | disposition home or self-care (01) ==
LOC: JASU-SURG 05:05
PROVIDERS: ATTEND Pain Medicine Pain Medicine
PROC: 3E0T33Z Introduction of Anti-inflammatory into Peripheral Nerves and Plexi, Percutaneous Approach (ICD-10-PCS; 2021-02-20)
PROC: 3E0T3BZ Introduction of Anesthetic Agent into Peripheral Nerves and Plexi, Percutaneous Approach (ICD-10-PCS; principal; 2021-02-20 08:30)
DX: M47.816 Spondylosis without myelopathy or radiculopathy, lumbar region (principal)
CPT/HCPCS: 76000-TC-FY; J1100

== ENCOUNTER 2021-03-13 04:42 | Day surgery (SDC) | payer OTHER ==
[2021-03-12 13:12] VITALS: BMI 40.4
[2021-03-13] MEDS ORDERED: LIDOCAINE HCL/PF 1% SDV 5ML VIAL ONE (07:36)
[2021-03-13] MEDS ORDERED: BUPIVACAINE HCL/PF 0.75% 10 ML VIAL ONE (07:37)
[2021-03-13] MEDS ORDERED: LIDOCAINE HCL/PF 2% SDV 5ML VIAL ONE (12:57)
[2021-03-13] MEDS ORDERED: LIDOCAINE HCL 1% PRESERVATIVE FREE - 30ML VIAL IJ ONE (13:34)
[2021-03-13 14:50] VITALS: PULSE 68
[2021-03-13 15:24] VITALS: BP 140/80; TEMP 97
== END 2021-03-13 15:10 | disposition home or self-care (01) ==
LOC: JASU-SURG 04:42
PROVIDERS: ATTEND Pain Medicine Pain Medicine
PROC: 01HY3MZ Insertion of Neurostimulator Lead into Peripheral Nerve, Percutaneous Approach (ICD-10-PCS; principal; 2021-03-13 13:00)
DX: G89.4 Chronic pain syndrome (principal); M79.604 Pain in right leg
CPT/HCPCS: 64555; C1897; 76000-TC-FY

== ENCOUNTER 2021-12-08 03:54 | Day surgery (SDC) | payer OTHER ==
[2021-12-04 14:17] VITALS: BMI 40.8
[2021-12-08] MEDS ORDERED: ceFAZolin 2 GRAM PREMIX BAG IVPB ONE ×2 (10:50→11:17)
[2021-12-08] MEDS ORDERED: ceFAZolin SODIUM 1 GM VIAL ONE ×2 (11:10)
[2021-12-08] MEDS ORDERED: MIDAZOLAM HCL 2 MG/2 ML SINGLE DOSE VIAL ONE (11:10)
[2021-12-08 12:41] VITALS: BP 127/64; PULSE 66; TEMP 97.8
== END 2021-12-08 13:04 | disposition home or self-care (01) ==
LOC: JASU-SURG 03:54
PROVIDERS: ATTEND Urology
PROC: 0TF3XZZ Fragmentation in Right Kidney Pelvis, External Approach (ICD-10-PCS; principal; 2021-12-08 10:30)
DX: N20.0 Calculus of kidney (principal)
CPT/HCPCS: 82962

== ENCOUNTER 2022-03-05 04:11 | Day surgery (SDC) | payer OTHER ==
[2022-03-03 16:11] VITALS: BMI 41.0
[2022-03-05] MEDS ORDERED: LIDOCAINE HCL/PF 1% SDV 5ML VIAL ONE (07:20)
[2022-03-05] MEDS ORDERED: LIDOCAINE HCL/PF 2% SDV 5ML VIAL ONE (07:22)
[2022-03-05] MEDS ORDERED: MIDAZOLAM HCL 2 MG/2 ML SINGLE DOSE VIAL ONE (12:53)
[2022-03-05] MEDS ORDERED: ceFAZolin SODIUM 1 GM VIAL ONE (12:58)
[2022-03-05] MEDS ORDERED: ceFAZolin SODIUM 1 GM VIAL IVPB ONE (13:00)
[2022-03-05] MEDS ORDERED: LIDOCAINE 1% P/F 10 MG/ML VIAL INF ONE (13:15)
[2022-03-05] MEDS ORDERED: LIDOCAINE HCL/PF 2% SDV 5ML VIAL INF ONE (13:17)
[2022-03-05] MEDS ORDERED: ACETAMINOPHEN 325 MG TABLET (FP) PO ONE (14:10)
[2022-03-05] MEDS ORDERED: ACETAMINOPHEN 325 MG TABLET (FP) ONE (14:14)
[2022-03-05 15:27] VITALS: BP 123/51; PULSE 64; TEMP 98
== END 2022-03-05 15:15 | disposition home or self-care (01) ==
LOC: JASU-SURG 04:11
PROVIDERS: ATTEND Pain Medicine Pain Medicine
PROC: BR19YZZ Fluoroscopy of Lumbar Spine using Other Contrast (ICD-10-PCS; 2022-03-05)
PROC: 01NB3ZZ Release Lumbar Nerve, Percutaneous Approach (ICD-10-PCS; principal; 2022-03-05 11:00)
DX: M48.062 Spinal stenosis, lumbar region with neurogenic claudication (principal)
CPT/HCPCS: 0275T; C1889; 76000-TC-FY; 82962; 88304-TC

== ENCOUNTER 2022-08-20 04:22 | Day surgery (SDC) | payer OTHER ==
[2022-08-19 12:08] VITALS: BMI 42.0
[2022-08-20] MEDS ORDERED: KETAMINE HCL 500 MG/10 ML VIAL ONE (07:23)
[2022-08-20 08:58] VITALS: TEMP 98.6
[2022-08-20 10:36] VITALS: BP 135/63; PULSE 65; RESP 18
== END 2022-08-20 09:58 | disposition home or self-care (01) ==
LOC: JASU-ENDO 04:22
PROVIDERS: ATTEND Internal Medicine Gastroenterology
PROC: 0DBL8ZX Excision of Transverse Colon, Via Natural or Artificial Opening Endoscopic, Diagnostic (ICD-10-PCS; 2022-08-20)
PROC: 0DBN8ZX Excision of Sigmoid Colon, Via Natural or Artificial Opening Endoscopic, Diagnostic (ICD-10-PCS; principal; 2022-08-20 08:00)
DX: Z12.11 Encounter for screening for malignant neoplasm of colon (principal); K63.5 Polyp of colon; K57.30 Diverticulosis of large intestine without perforation or abscess without bleeding; K64.8 Other hemorrhoids; Z86.010 Personal history of colon polyps; Z80.0 Family history of malignant neoplasm of digestive organs
CPT/HCPCS: 88305-TC

== ENCOUNTER → 2022-08-26 | Day surgery (SDC) | payer OTHER | END | disposition home or self-care (01) | LOC: FMAMMOTONE 09:55 | PROVIDERS: ATTEND Family Medicine Geriatric Medicine | PROC: 0HBU3ZX Excision of Left Breast, Percutaneous Approach, Diagnostic (ICD-10-PCS; principal; 2022-08-26) | DX: D24.2 Benign neoplasm of left breast (principal); N64.89 Other specified disorders of breast; R92.0 Mammographic microcalcification found on diagnostic imaging of breast | CPT/HCPCS: 19081; 76098-TC-FY; 88305-TC ==

== ENCOUNTER 2023-05-20 04:29 | Day surgery (SDC) | payer OTHER ==
[2023-05-16 14:41] VITALS: BMI 43.6
[2023-05-20] MEDS ORDERED: ACETAMINOPHEN 500 MG TABLET (FP) PO PRN (09:18)
[2023-05-20] MEDS ORDERED: DEXTROSE 5%-NORMAL SALINE 1,000 ML IV SCH (10:40)
[2023-05-20] MEDS ORDERED: PROPOFOL 20 ML ONE (11:50)
[2023-05-20] MEDS ORDERED: MIDAZOLAM HCL 2 MG/2 ML SINGLE DOSE VIAL ONE (11:50)
[2023-05-20] MEDS ORDERED: SODIUM CHLORIDE 0.9% P/F 10 ML VIAL IJ ONE (12:18)
[2023-05-20] MEDS ORDERED: ONDANSETRON 4 MG/2 ML VIAL ONE (12:18)
[2023-05-20] MEDS ORDERED: ceFAZolin SODIUM 1 GM VIAL ONE (12:18)
[2023-05-20] MEDS ORDERED: ceFAZolin SODIUM 1 GM VIAL IVPB ONE (12:19)
[2023-05-20] MEDS ORDERED: LIDOCAINE HCL/PF 2% SDV 5ML VIAL INF ONE (12:30)
[2023-05-20] MEDS ORDERED: LIDOCAINE HCL 1%, 10 MG/ML (20ML VIAL) INF ONE (12:30)
[2023-05-20] MEDS ORDERED: ALBUTEROL SO4 HFA INHALER IH ONE (12:38)
[2023-05-20 13:18] VITALS: RESP 20
[2023-05-20 15:52] VITALS: BP 125/67; PULSE 70; TEMP 97.8
== END 2023-05-20 15:45 | disposition home or self-care (01) ==
LOC: JASU-SURG 04:29
PROVIDERS: ATTEND Pain Medicine Pain Medicine
PROC: 00HU3MZ Insertion of Neurostimulator Lead into Spinal Canal, Percutaneous Approach (ICD-10-PCS; principal; 2023-05-20 12:45)
DX: M96.1 Postlaminectomy syndrome, not elsewhere classified (principal)
CPT/HCPCS: 63650; C1897; 76000-TC-FY; 82962; C1889

== ENCOUNTER 2023-10-20 11:35 | Inpatient (IN) | payer OTHER ==
[2023-10-20] MEDS ORDERED: ONDANSETRON 4 MG/2 ML VIAL ONE (12:32)
[2023-10-20] MEDS ORDERED: ACETAMINOPHEN 500 MG TABLET (FP) ONE (12:33)
[2023-10-20] MEDS: ACETAMINOPHEN 500 MG TABLET (FP) PO ONE (12:54)
[2023-10-20] MEDS: SODIUM CHLORIDE 0.9% 500 ML INFUS.BAG IV ONE (12:55)
[2023-10-20] MEDS: ONDANSETRON 4 MG/2 ML VIAL IVPB ONE (12:55)
[2023-10-20 13:07] LABS: BASO % 0.1 % (0-2.0); EOS % 0.5 % (0-4.5); HEMOGLOBIN 11.5 GM/dL (10.7-15.3); LYMPH % 12.2 % (8-40); MCH 27.3 pg (25.7-33.7); MCHC 31.9 g/dl (32.0-36.0); MEAN CELL VOLUME 85.6 fl (80-96); MEAN PLT VOLUME 7.8 fl (7.5-11.1); MONO % 10.1 % (3.8-10.2); NEUT % 77.1 % (42.8-82.8); PLATELET COUNT 256 10^3/uL (134-434); RDW 15.2 % (11.6-15.6); WHITE BLOOD COUNT 12.1 K/mm3 (4.0-10.0)
[2023-10-20 14:08] LABS: EPI CELLS 9 /uL (0-25.1); HYALINE CASTS 4 /uL (0-3.1); URINE APPEARANCE CLOUDY; URINE BACTERIA 4182 /uL (0-1359); URINE BILIRUBIN NEGATIVE (NEGATIVE); URINE COLOR YELLOW; URINE GLUCOSE (UA) NEGATIVE (NEGATIVE); URINE KETONE NEGATIVE (NEGATIVE); URINE LEUK ESTERASE 3+ (NEGATIVE); URINE NITRITE NEGATIVE (NEGATIVE); URINE PROTEIN 1+ (NEGATIVE); URINE RBC 40 /uL (0-23.9); URINE UROBILINOGEN 0.2 mg/dL (0.2-1.0); URINE WBC 2144 /uL (0-25.8)
[2023-10-20 14:18] LABS: POTASSIUM 3.7 mmol/L (3.5-5.1)
[2023-10-20 14:19] LABS: ALBUMIN 3.5 g/dl (3.4-5.0); BILIRUBIN,TOTAL 0.5 mg/dL (0.2-1); BLOOD UREA NITROGEN 16.6 mg/dL (7-18); CALCIUM 9.6 mg/dL (8.5-10.1); CREATININE 0.7 mg/dL (0.55-1.3); TOT PROT 7.2 g/dl (6.4-8.2)
[2023-10-20] MEDS ORDERED: ONDANSETRON 4 MG/2 ML VIAL IVPUSH PRN (17:13)
[2023-10-20] MEDS ORDERED: ACETAMINOPHEN 325 MG TABLET (FP) PO PRN (17:13)
[2023-10-20] MEDS ORDERED: TAMSULOSIN HCL 0.4 MG CAP ONE (17:17)
[2023-10-20] MEDS ORDERED: CEFTRIAXONE 1 GM/50 ML BAG ONE (17:18)
[2023-10-20] MEDS: TAMSULOSIN HCL 0.4 MG CAP PO ONE (17:33)
[2023-10-20] MEDS: SODIUM CHLORIDE 1,000 ML IV SCH ×2 (17:33→17:36)
[2023-10-20] MEDS: CEFTRIAXONE 1,000 MG in DEXTROSE 5%-WATER - 50 ML IVPB ONE (17:33)
[2023-10-20] MEDS: METOPROLOL TARTRATE 25 MG TABLET (FP) PO SCH (21:27)
[2023-10-20] MEDS: ATORVASTATIN CA 40 MG TABLET (FP) PO SCH (21:27)
[2023-10-20] MEDS: LATANOPROST 0.005% OPHTH SOLN 2.5ML BOTTLE OU SCH (21:52)
[2023-10-20] MEDS: BRIMONIDINE TARTRATE 0.1% OPHTHALMIC 5 ML BOTTLE OU SCH (21:53)
[2023-10-20] MEDS: TIMOLOL 0.5% OPHTHALMIC SOL 5 ML BOTTLE OU SCH (21:53)
[2023-10-20] MEDS ORDERED: ATORVASTATIN CA 20 MG TABLET (FP) PO SCH (22:00)
[2023-10-21 00:45] VITALS: BMI 42.2
[2023-10-21] MEDS: LEVOTHYROXINE NA 75 MCG TABLET (FP) PO SCH (06:12)
[2023-10-21 09:56] LABS: BASO % 0.2 % (0-2.0); EOS % 1.7 % (0-4.5); HEMATOCRIT 30.6 % (32.4-45.2); HEMOGLOBIN 9.9 GM/dL (10.7-15.3); LYMPH % 15.8 % (8-40); MCH 27.7 pg (25.7-33.7); MCHC 32.3 g/dl (32.0-36.0); MEAN CELL VOLUME 85.9 fl (80-96); MEAN PLT VOLUME 7.8 fl (7.5-11.1); MONO % 10.1 % (3.8-10.2); NEUT % 72.2 % (42.8-82.8); PLATELET COUNT 211 10^3/uL (134-434); RBC 3.57 M/mm3 (3.60-5.2); RDW 15.4 % (11.6-15.6); WHITE BLOOD COUNT 6.3 K/mm3 (4.0-10.0)
[2023-10-21] MEDS: LOSARTAN POTASSIUM 50 MG TABLET PO SCH (10:17)
[2023-10-21] MEDS: MULTIVITAMINS THER W-MINERALS COMBO TABLET (FP) PO SCH (10:17)
[2023-10-21] MEDS: TAMSULOSIN HCL 0.4 MG CAP PO SCH (10:17)
[2023-10-21] MEDS: CEFTRIAXONE 1 GM in DEXTROSE 5%-WATER - 50 ML IVPB SCH (10:18)
[2023-10-21 10:27] LABS: CALCIUM 8.6 mg/dL (8.5-10.1)
[2023-10-21 10:28] LABS: BLOOD UREA NITROGEN 14.5 mg/dL (7-18)
[2023-10-21 10:31] LABS: CREATININE 0.6 mg/dL (0.55-1.3)
[2023-10-21] MEDS ORDERED: LIDOCAINE HCL 2% JELLY 11 ML TP ONE (12:53)
[2023-10-21] MEDS ORDERED: PROPOFOL 20 ML ONE ×2 (14:06→14:40)
[2023-10-21] MEDS ORDERED: SUCCINYLCHOLINE CHLORIDE 200 MG/10 ML SYRINGE ONE (14:06)
[2023-10-21] MEDS: GENTAMICIN SO4 80 MG/2 ML VIAL IVPB ONE (14:30)
[2023-10-21] MEDS: IOHEXOL 300 MG/ML INFUS..BTL IJ ONE (14:35)
[2023-10-21] MEDS ORDERED: ONDANSETRON 4 MG/2 ML VIAL IVPUSH PRN (15:36)
[2023-10-21] MEDS: SODIUM CHLORIDE 1,000 ML IV SCH (16:00)
[2023-10-21] MEDS: INSULIN ASPART SLIDING SCALE (NOVOLOG) 1 VIAL SQ SCH (16:24)
[2023-10-21] MEDS ORDERED: INSULIN ASPART SLIDING SCALE (NOVOLOG) 1 VIAL SQ SCH (16:30)
[2023-10-21] MEDS: METOPROLOL TARTRATE 25 MG TABLET (FP) PO SCH (21:22)
[2023-10-21] MEDS: ATORVASTATIN CA 40 MG TABLET (FP) PO SCH (21:22)
[2023-10-21] MEDS: BRIMONIDINE TARTRATE 0.1% OPHTHALMIC 5 ML BOTTLE OU SCH (21:25)
[2023-10-21] MEDS: TIMOLOL 0.5% OPHTHALMIC SOL 5 ML BOTTLE OU SCH (21:25)
[2023-10-21] MEDS: LATANOPROST 0.005% OPHTH SOLN 2.5ML BOTTLE OU SCH (21:26)
[2023-10-22] MEDS: ACETAMINOPHEN 325 MG TABLET (FP) PO PRN (05:31)
[2023-10-22] MEDS: LEVOTHYROXINE NA 75 MCG TABLET (FP) PO SCH (06:14)
[2023-10-22] MEDS ORDERED: INSULIN ASPART SLIDING SCALE (NOVOLOG) 1 VIAL SQ ONE (07:03)
[2023-10-22] MEDS ORDERED: INSULIN (LEVEMIR) 100 UNITS/ML UNITS SQ ONE (07:03)
[2023-10-22] MEDS: TAMSULOSIN HCL 0.4 MG CAP PO SCH (08:05)
[2023-10-22 08:56] LABS: POTASSIUM 4.2 mmol/L (3.5-5.1)
[2023-10-22] MEDS: LOSARTAN POTASSIUM 50 MG TABLET PO SCH (09:03)
[2023-10-22] MEDS: MULTIVITAMINS THER W-MINERALS COMBO TABLET (FP) PO SCH (09:03)
[2023-10-22] MEDS: CEFTRIAXONE 1 GM in DEXTROSE 5%-WATER - 50 ML IVPB SCH (09:04)
[2023-10-22 09:05] LABS: CALCIUM 8.6 mg/dL (8.5-10.1)
[2023-10-22 09:08] LABS: CREATININE 0.6 mg/dL (0.55-1.3)
[2023-10-22 09:09] LABS: BILIRUBIN,TOTAL 0.2 mg/dL (0.2-1); TOT PROT 5.4 g/dl (6.4-8.2)
[2023-10-22 09:17] LABS: ALBUMIN 2.5 g/dl (3.4-5.0)
[2023-10-22 09:25] LABS: BASO % 0.2 % (0-2.0); EOS % 0.3 % (0-4.5); HEMATOCRIT 29.6 % (32.4-45.2); HEMOGLOBIN 9.6 GM/dL (10.7-15.3); LYMPH % 13.1 % (8-40); MCH 27.9 pg (25.7-33.7); MCHC 32.5 g/dl (32.0-36.0); MEAN PLT VOLUME 8.1 fl (7.5-11.1); MONO % 9.7 % (3.8-10.2); NEUT % 76.7 % (42.8-82.8); PLATELET COUNT 207 10^3/uL (134-434); RBC 3.44 M/mm3 (3.60-5.2); RDW 14.9 % (11.6-15.6); WHITE BLOOD COUNT 7.6 K/mm3 (4.0-10.0)
[2023-10-22 10:28] VITALS: RESP 18
[2023-10-24 08:31] LABS: BASO % 0.4 % (0-2.0); EOS % 4.3 % (0-4.5); HEMATOCRIT 31.7 % (32.4-45.2); HEMOGLOBIN 10.7 GM/dL (10.7-15.3); LYMPH % 21.7 % (8-40); MCHC 33.6 g/dl (32.0-36.0); MEAN CELL VOLUME 83.4 fl (80-96); MEAN PLT VOLUME 7.9 fl (7.5-11.1); MONO % 9.6 % (3.8-10.2); PLATELET COUNT 251 10^3/uL (134-434); RDW 14.7 % (11.6-15.6); WHITE BLOOD COUNT 7.1 K/mm3 (4.0-10.0)
[2023-10-24 08:39] LABS: POTASSIUM 4.2 mmol/L (3.5-5.1)
[2023-10-24 08:44] LABS: BLOOD UREA NITROGEN 9.1 mg/dL (7-18); CALCIUM 9.6 mg/dL (8.5-10.1)
[2023-10-24 08:45] LABS: ALBUMIN 2.8 g/dl (3.4-5.0)
[2023-10-24 08:47] LABS: CREATININE 0.6 mg/dL (0.55-1.3)
[2023-10-24 08:49] LABS: BILIRUBIN,TOTAL 0.4 mg/dL (0.2-1); TOT PROT 6.2 g/dl (6.4-8.2)
[2023-10-24 09:03] VITALS: BP 145/57; PULSE 70; TEMP 98.3
== END 2023-10-24 11:23 | disposition home or self-care (01) | DRG 661 ==
LOC: JER 11:35 → INTOOBSV 16:53 → JERBED 16:53 → UNDOADMOB 16:53 → OBSVTOIN 17:13 → JERBED 17:13 → J6S 19:52 → JERBED 19:52
PROVIDERS: ADMIT Internal Medicine; ATTEND Internal Medicine
PROC: 0T778DZ Dilation of Left Ureter with Intraluminal Device, Via Natural or Artificial Opening Endoscopic (ICD-10-PCS; principal; 2023-10-21 15:00)
DX: N13.2 Hydronephrosis with renal and ureteral calculous obstruction (principal); I25.10 Atherosclerotic heart disease of native coronary artery without angina pectoris; K21.9 Gastro-esophageal reflux disease without esophagitis; E78.00 Pure hypercholesterolemia, unspecified; I10 Essential (primary) hypertension; E11.9 Type 2 diabetes mellitus without complications; E03.9 Hypothyroidism, unspecified; M54.17 Radiculopathy, lumbosacral region; D72.829 Elevated white blood cell count, unspecified
CPT/HCPCS: 0241U-QW; 36415; 74177-TC; 76000-TC-FY; 80048; 80053; 81003; 82962; 83690; 84484; 85025; 87086; 93005; 93010; 94760; 99285-25; C1758; C2617; Q9967